=== PATIENT | female | born 1970 | race Asian ===

== ENCOUNTER 2017-02-15 10:17 | Emergency (ER) | payer OTHER ==
--- NOTE | 2017-02-15 12:09 | EDPHY ---
H & P Stated Complaint: periumbilical abd pain Time Seen by Provider: 02/15/17 12:09 HPI/ROS: HPI: This is a 46-year-old female presents with Chief Complaint: Periumbilical abdominal pain Location: Periumbilical Quality: Pain Duration: 2 days Signs and Symptoms: no fever, no nausea, no vomiting, no hematemesis, no blood in stool, no abdominal bloating, no diarrhea, no back pain, no urinary symptoms , no vaginal bleeding/discharge, no indigestion, no chest pain, no shortness of breath Timing: Sudden, constant Severity: 10/27 Context: Patient presents from Urgent Care for constant, severe periumbilical pain for the last 2 days. She reports that this occurs every couple months over the last 2 years but self resolves within a few hours. She had a bowel movement today and yesterday. last meal was oatmeal at 6:00 a.m. LMP 3 weeks ago. No history of abdominal surgeries. Asking to eat a granola bar during my interview. No urinary symptoms. Not passing flatus. Denies fever, chills, nausea, vomiting, diarrhea, back pain, vaginal bleeding, vaginal discharge. Modifying Factors: None Comment: ROS: see HPI Constitutional: No fever, no chills, no weight loss Eyes: No blurred vision Respiratory: No shortness of breath, no cough Cardiovascular: No chest pain, no palpitations Gastrointestinal: No nausea, no vomiting, no diarrhea, no hematemesis, no blood in stool Genitourinary: No dysuria, no blood in urine Extremities: No myalgias, no edema Neurologic: No weakness, no numbness Skin: No rashes, no petechiae Hematologic: No bruising, no bleeding MEDICAL/SURGICAL/SOCIAL HISTORY: Medical history: Generally healthy. Does not take any regular medications. Surgical history: Denies Social history: . CONSTITUTIONAL: Nontoxic appearing female, awake and alert, no obvious distress HEENT: Atraumatic and normocephalic, PERRL, EOMI. Tympanic membranes clear. Oropharynx clear, no exudate and moist pink mucosa. Airway patent. No lymphadenopathy. No meningismus. Cardiovascular: Normal S1/S2, regular rate, regular rhythm, without murmur rub or gallop. PULMONARY/CHEST: Symmetrical and nontender. Clear to auscultation bilaterally. Good air movement. No accessory muscle usage. ABDOMEN: Soft, nondistended, severe periumbilical tenderness, no rebound, + guarding, no peritoneal signs, no masses or organomegaly. No CVAT. EXTREMITIES: 2/2 pulses, strength 5/5, no deformities, no clubbing, no cyanosis or edema. NEUROLOGICAL: no focal neuro deficits. GCS 15. SKIN: Warm and dry, no erythema. no rash. Good capillary refill. Source: Patient Exam Limitations: No limitations - Personal History LMP (Females 10-55): 15-21 Days Ago Current Tetanus/Diphtheria Vaccine: Yes - Medical/Surgical History Hx Asthma: Yes Hx Chronic Respiratory Disease: No Hx Diabetes: No Hx Cardiac Disease: No Hx Renal Disease: No Hx Cirrhosis: No Hx Alcoholism: No Hx HIV/AIDS: No Hx Splenectomy or Spleen Trauma: No Other PMH: asthma/allergies - Social History Smoking Status: Never smoked Constitutional: Initial Vital Signs Temperature (C) 36.7 C 02/15/17 10:21 Heart Rate 82 02/15/17 10:21 Respiratory Rate 16 02/15/17 10:21 Blood Pressure 129/59 H 02/15/17 10:21 O2 Sat (%) 97 02/15/17 10:21 O2 Delivery Mode Room Air Allergies/Adverse Reactions: codeine Allergy (Verified 02/15/17 10:18) Penicillins Allergy (Verified 02/15/17 10:19) Sulfa (Sulfonamide Antibiotics) Allergy (Verified 02/15/17 10:18) Home Medications: Medication Instructions Recorded Advair 100/50 (*) 02/15/17 BENADRYL 02/15/17 Hydroxyzine HCl 02/15/17 Singulair 02/15/17 Xopenex 02/15/17 Xyzal 02/15/17 Medical Decision Making - Diagnostics Imaging Results: Imaging Impressions Abdomen CT 02/15/17 12:17 Impression: 1. Constipation. 2. No bowel obstruction. 3. Appendix not identified, although no secondary evidence of appendicitis 4. Minimal free fluid in the pelvis, with a small collapsed cyst or follicle in the right ovary. Findings and recommendations discussed with Emergency Department physician, Mita Cabello PA-C on 1340 hours on February 15, 2017. Final report concurs with initial preliminary interpretation. ED Course/Re-evaluation: Labs, IV fluids, urinalysis, CT abdomen and pelvis scan ordered Patient is afebrile and no systemic signs Given 1 L normal saline, IV Toradol, IV Zofran Called by radiologist who advised CT abdomen and pelvis scan shows signs of constipation, minimal free fluid secondary to small collapsed cyst in the right ovary, appendix not visualized but no secondary signs Repeat abdominal exam shows it to be soft with minimal tenderness. Patient reports that she does not drink enough fluids that she is a runner and does not drink hardly any fiber. Discussed options of further imaging versus treating for constipation and close follow-up. Patient and prefer to treat for constipation which I deem is reasonable. Patient reports that she has yearly OBGYN visits with no history of ovarian cysts, fibroids, endometriosis. Differential Diagnosis: Abdominal pain including but not limited to appendicitis, cholecystitis, gastritis and urinary tract infection. - Data Points Laboratory Results: Laboratory Results 02/15/17 12:20 02/15/17 12:20 02/15/17 02/15/17 02/15/17 13:45 13:33 12:20 WBC RBC Hgb Hct MCV MCH MCHC RDW Plt Count MPV Neut % (Auto) Lymph % (Auto) Hand % (Auto) Eos % (Auto) Baso % (Auto) Nucleat RBC Rel Count Absolute Neuts (auto) Absolute Lymphs (auto) Absolute Monos (auto) Absolute Eos (auto) Absolute Basos (auto) Absolute Nucleated RBC Immature Gran % Immature Gran # VBG Lactic Acid 0.8 mmol/L mmol/L (0.7-2.1) Sodium Potassium Chloride Carbon Dioxide Anion Gap BUN Creatinine Estimated GFR Glucose Calcium Lipase Beta HCG, Qual NEGATIVE Urine Color PALE YELLOW Urine Appearance CLEAR Urine pH 7.0 (5.0-7.5) Ur Specific [place] 1.025 (1.002-1.030) Urine Protein NEGATIVE (NEGATIVE) Urine Ketones NEGATIVE (NEGATIVE) Urine Blood NEGATIVE (NEGATIVE) Urine Nitrate NEGATIVE (NEGATIVE) Urine Bilirubin NEGATIVE (NEGATIVE) Urine Urobilinogen NEGATIVE EU EU (0.2-1.0) Ur Leukocyte Esterase NEGATIVE (NEGATIVE) Urine Glucose NEGATIVE (NEGATIVE) 02/15/17 02/15/17 12:20 12:20 WBC 5.63 10^3/uL 10^3/uL (3.80-9.50) RBC 4.60 10^6/uL 10^6/uL (4.18-5.33) Hgb 15.4 g/dL g/dL (12.6-16.3) Hct 42.5 % % (38.0-47.0) MCV 92.4 fL fL (81.5-99.8) MCH 33.5 pg pg (27.9-34.1) MCHC 36.2 g/dL g/dL (32.4-36.7) RDW 11.9 % % (11.5-15.2) Plt Count 266 10^3/uL 10^3/uL (150-400) MPV 8.5 fL L fL (8.7-11.7) Neut % (Auto) 62.8 % % (39.3-74.2) Lymph % (Auto) 23.3 % % (15.0-45.0) Hand % (Auto) 11.0 % % (4.5-13.0) Eos % (Auto) 2.0 % % (0.6-7.6) Baso % (Auto) 0.5 % % (0.3-1.7) Nucleat RBC Rel Count 0.0 % % (0.0-0.2) Absolute Neuts (auto) 3.54 10^3/uL 10^3/uL (1.70-6.50) Absolute Lymphs (auto) 1.31 10^3/uL 10^3/uL (1.00-3.00) Absolute Monos (auto) 0.62 10^3/uL 10^3/uL (0.30-0.80) Absolute Eos (auto) 0.11 10^3/uL 10^3/uL (0.03-0.40) Absolute Basos (auto) 0.03 10^3/uL 10^3/uL (0.02-0.10) Absolute Nucleated RBC 0.00 10^3/uL 10^3/uL (0-0.01) Immature Gran % 0.4 % % (0.0-1.1) Immature Gran # 0.02 10^3/uL 10^3/uL (0.00-0.10) VBG Lactic Acid Sodium 141 mEq/L mEq/L (134-144) Potassium 3.9 mEq/L mEq/L (3.5-5.2) Chloride 103 mEq/L mEq/L (97-110) Carbon Dioxide 28 mEq/l mEq/l (22-31) Anion Gap 10 mEq/L mEq/L (8-16) BUN 9 mg/dL mg/dL (7-23) Creatinine 0.8 mg/dL mg/dL (0.6-1.0) Estimated GFR > 60 Glucose 90 mg/dL mg/dL (70-100) Calcium 10.0 mg/dL mg/dL (8.5-10.4) Lipase 65 IU/L IU/L (23-300) Beta HCG, Qual Urine Color Urine Appearance Urine pH Ur Specific [place] Urine Protein Urine Ketones Urine Blood Urine Nitrate Urine Bilirubin Urine Urobilinogen Ur Leukocyte Esterase Urine Glucose Medications Given: Discontinued Medications Sodium Chloride (Ns) 1,000 mls @ 0 mls/hr IV EDNOW ONE; Wide Open PRN Reason: Protocol Stop: 02/15/17 12:18 Last Admin: 02/15/17 12:34 Dose: 1,000 mls Ketorolac Tromethamine (Toradol) 30 mg IVP EDNOW ONE Stop: 02/15/17 12:18 Last Admin: 02/15/17 12:35 Dose: 30 mg Ondansetron HCl (Zofran) 4 mg IVP EDNOW ONE Stop: 02/15/17 12:18 Last Admin: 02/15/17 12:35 Dose: 4 mg Departure - Departure Disposition: Home, Routine, Self-Care Clinical Impression: Constipation by delayed colonic transit Condition: Good Instructions: Constipation (ED) Additional Instructions: Increase fiber in diet. Drink a minimum of #8, 8 oz glasses of water daily. Take MiraLax daily until having normal soft bowel movements and then use as needed. Please follow a soft and clear liquid diet until constipation has resolved. If at any time you spiked a fever, have increased right lower quadrant abdominal pain, nausea, vomiting; please return to the emergency room immediately. Referrals: Yissel Sargent MD [Medical Doctor] - As per Instructions
[2017-02-15] MEDS ORDERED: ONDANSETRON 4 MG/2 ML VIAL IVP ONE (12:17)
[2017-02-15] MEDS ORDERED: NS 1,000 ML IV ONE (12:17)
[2017-02-15] MEDS ORDERED: KETOROLAC 30 MG/1 ML SDV IVP ONE (12:17)
[2017-02-15 12:30] LABS: % IMMATURE GRANULYOCYTES 0.4 % (0.0-1.1); ABSOLUTE IMMATURE GRANULOCYTES 0.02 10^3/uL (0.00-0.10); ADD DIFF? NO; ADD MORPH? NO; ADD SCAN? NO; ATYPICAL LYMPHOCYTE FLAG 10 (0-99); FRAGMENT RBC FLAG 0 (0-99); HEMATOCRIT 42.5 % (38.0-47.0); HEMOGLOBIN 15.4 g/dL (12.6-16.3); LEFT SHIFT FLG 0 (0-99); LIPEMIA HEMOLYSIS FLAG 90 (0-99); MEAN CELL HEMOGLOBIN 33.5 pg (27.9-34.1); MEAN CELL HEMOGLOBIN CONCENTR. 36.2 g/dL (32.4-36.7); MEAN CELL VOLUME 92.4 fL (81.5-99.8); MEAN PLATELET VOLUME 8.5 fL (8.7-11.7); PLATELET CLUMPS FLAG 0 (0-99); PLATELET COUNT 266 10^3/uL (150-400); RED CELL DISTRIBUTION WIDTH 11.9 % (11.5-15.2)
[2017-02-15 12:50] LABS: ANION GAP 10 mEq/L (8-16); CARBON DIOXIDE 28 mEq/l (22-31); CHLORIDE 103 mEq/L (97-110); CREATININE 0.8 mg/dL (0.6-1.0); GLOMERULAR FILTRATION RATE > 60; GLUCOSE 90 mg/dL (70-100); POTASSIUM 3.9 mEq/L (3.5-5.2); SODIUM 141 mEq/L (134-144)
[2017-02-15] MEDS ORDERED: IOPAMIDOL (ISOVUE-300) 100 ML BTL ONE (13:05)
[2017-02-15 14:01] LABS: COLOR PALE YELLOW; LEUKOCYTE ESTERASE,URINE NEGATIVE (NEGATIVE); NITRITE,URINE NEGATIVE (NEGATIVE)
[2017-02-15 14:35] VITALS: BP 116/75; PULSE 67; RESP 18; TEMP 98.2; O2SAT 95
== END 2017-02-15 14:35 | disposition home or self-care (01) ==
DX: K59.00 Constipation, unspecified (principal); J45.909 Unspecified asthma, uncomplicated; E86.9 Volume depletion, unspecified
CPT/HCPCS: 96374; J1885; J2405; Q9967

== ENCOUNTER → 2018-06-06 | Outpatient (CLI) | payer OTHER | LOC: BMCIMAGING 08:31 | PROVIDERS: ATTEND Family Medicine | DX: M25.521 Pain in right elbow (principal) ==